=== PATIENT | female | born 1950 | race Caucasian/White ===

== ENCOUNTER 2022-01-01 11:44 | Day surgery (SDC) | payer MEDICARE, SELFPAY ==
[2022-01-01 12:03] VITALS: BP 158/72; PULSE 61; RESP 16; TEMP 36.4; O2SAT 99
[2022-01-01] MEDS: Tropicam./Phenyleph. (1/2.5%) 5 ML BTL OD ×3 (12:24→12:35)
--- NOTE | 2022-01-01 12:40 | W.ANESPRE ---
General Info Date of Service Date Performed: 01/01/22 Height: 5 ft 1.54 in Weight: 80.6 kg Body Mass Index (BMI): 33.0 Surgical Procedure: Operation Date: 01/01/22 15:40 Proposed Procedure Side Surgeon p Cataract Extraction with IOL Implant Right Remberto Quiroz MD Meds Allergies and Home Medications Allergies Allergy/AdvReac Type Severity Reaction Status Date / Time POLO Inhibitors Allergy Severe Other (See Unverified 01/01/22 12:19 Comment) lisinopril Allergy Severe Other (See Unverified 01/01/22 12:19 Comment) dog dander Allergy Unverified 01/01/22 12:19 Cat/Feline Products Allergy Uncoded 12/29/21 11:55 Home Medication Medication Instructions Recorded amlodipine 10 mg tablet 10 tab PO DAILY 12/28/21 atorvastatin 80 mg tablet 80 tab PO HS 12/28/21 carvedilol 25 mg tablet 25 tab PO BID 12/28/21 chlorthalidone 50 mg tablet 50 tab PO DAILY 12/28/21 diltiazem HCl 360 mg 360 cap PO DAILY 12/28/21 capsule,extended release 24 hr potassium chloride 10 mEq 10 tab PO DAILY 12/28/21 tablet,extended release sertraline 50 mg tablet 50 tab PO DAILY 12/28/21 spironolactone 25 mg tablet 25 tab PO BID 12/28/21 Current Visit Medications: Current Medications Generic Name Dose Route Start Last Admin Trade Name Freq PRN Reason Stop Dose Admin Acetaminophen 1,000 mg 01/01/22 06:00 Acetaminophen 500 Mg Tab PO 01/01/22 16:00 Q4H PRN PRN Miscellaneous Medication 0 ml 01/01/22 06:00 Prednisolone 1%, Moxifloxacin 0.5%, Nepafenac 0.1% 5ml Btl OD 01/01/22 16:00 DIRECTED [facility] Miscellaneous Medication 0 ml 01/01/22 06:00 01/01/22 12:35 Tropicam./Phenyleph. (1/2.5%) 5 Ml Btl OD 01/01/22 16:00 1 drp DIRECTED VIRA Administration Tetracaine HCl 0 ml 01/01/22 06:00 Tetracaine 0.5% 4 Ml Btl OD 01/01/22 16:00 DIRECTED [facility] PFSH Active Problems Active Problems: Problem Status Onset Code Nuclear sclerotic cataract of left eye H25.12 Medical History Medical History (Updated 01/01/22 @ 13:01 by Remberto Quiroz MD) Allergic urticaria Edema of lower extremity Hypertension Lipid disorder Menopause present Mixed anxiety and depressive disorder Obesity Pain in left shoulder Pain in limb Pain in right knee Resistant hypertension Pt. is home monitoring with recent medication adjustment. At time of pre-op call BP was 138/70. 155/62 Medical History Comments:: Per pt. stated youngest brother had issues waking up from anesthesia Surgical History Surgical History History of back surgery Hx of appendectomy Hx of colonoscopy Hx of tubal ligation Tobacco Smoking/Tobacco Use Status: Never Alcohol Alcohol Intake: current Alcohol intake frequency: a few times a week Alcohol type: beer and wine Substance Use Substance use: Daily Substance use type: marijuana Details: smoked marijuana 01.01.22 Vital Signs and Lab Results Vital Signs Most Recent Vital Signs in EMR: Most Recent Vital Signs Temp Pulse Resp BP Pulse Ox 36.4 C L 61 16 158/72 H 99 01/01/22 12:03 01/01/22 12:03 01/01/22 12:03 01/01/22 12:03 01/01/22 12:03 Lab Results Blood Type / Crossmatch: No Data to Display Complete Blood Count: No Data to Display Complete Metabolic Panel: No Data to Display Liver Function Panel: No Data to Display Coagulation Panel: No Data to Display Cardiac Panel: No Data to Display Arterial Blood Gas: No Data to Display Venous Blood Gas: No Data to Display Pancreas Panel: No Data to Display Thyroid Panel: No Data to Display Infectious Disease: No Data to Display Blood Cultures: No Data to Display Toxicology Panel: No Data to Display Anesthesia Assessment and Plan Anesthesia History Personal History: No History of Anesthesia Complications Family History: Other Exercise Tolerance Exercise Tolerance: Metabolic Equivalents>4 Pertinent Negatives Pertinent Negatives: No Symptoms of GERD, No Major Pulmonary Symptoms or Complaints and No History of CVA/TIA Cardiac & Pulmonary Exam Cardiac Exam: Normal S1/S2 Heart Sounds Pulmonary Exam: Clear Bilateral Breath Sounds Implantable Cardiac Device Does patient have a Pacemaker or an ICD?: No Airway Exam Known Difficult Airway: No Mallampati Class: 2 Mouth Opening: Normal (> 3cm) Thyromental Distance: Greater than 3 cm Neck Range of Motion: Full ROM Neck Circumference: Normal Teeth Condition: Normal Dentition ASA Classification ASA Score: ASA 2 Emergency Case?: No NPO Status NPO Status: NPO Clears >2 hours, Solids >8 hours Anesthesia Plan Resuscitation Status: Full Code Anesthesia Technique: MAC Anesthesia Airway Planned: Natural Airway Monitors Used: Standard Monitors
[2022-01-01 13:05] VITALS: BMI 33.0
[2022-01-01] MEDS: Tetracaine 0.5% 4 ML BTL OD (13:12)
[2022-01-01] MEDS: Lidocaine 2% Jelly 6 ML SYR (13:15)
[2022-01-01] MEDS: Povidone-Iodine Ophth 30 ML BTL (13:18)
[2022-01-01] MEDS: Duovisc Viscoelastic System EACH 1 EACH (13:20)
[2022-01-01] MEDS: Balanced Salt Soln.-PLUS 500 ML BAG (13:20)
[2022-01-01 13:44] VITALS: BP 176/78; PULSE 60; RESP 16; TEMP 36.4; O2SAT 98
--- NOTE | 2022-01-01 13:45 | W.PM.DSUDISC ---
Discharge Plan Disposition Patient Disposition: HOME Condition: Good Discharge Details Attending Provider: Remberto Quiroz Primary Care Provider: Evelyn Paredes Home Meds and New Rx's Prescriptions: No Action atorvastatin 80 mg tablet 80 tab PO HS Label Comments: TAKE ONE TABLET BY MOUTH EVERY DAY carvedilol 25 mg tablet 25 tab PO BID Label Comments: TAKE ONE TABLET BY MOUTH TWICE A DAY diltiazem HCl 360 mg capsule,extended release 24hr 360 cap PO DAILY Label Comments: TAKE ONE CAPSULE BY MOUTH EVERY DAY potassium chloride 10 mEq tablet extended release 10 tab PO DAILY Label Comments: TAKE ONE TABLET BY MOUTH EVERY DAY chlorthalidone 50 mg tablet 50 tab PO DAILY Label Comments: TAKE ONE TABLET BY MOUTH EVERY DAY spironolactone 25 mg tablet 25 tab PO BID Label Comments: TAKE ONE TABLET BY MOUTH EVERY DAY amlodipine 10 mg tablet 10 tab PO DAILY Label Comments: TAKE ONE TABLET BY MOUTH EVERY DAY sertraline 50 mg tablet 50 tab PO DAILY Label Comments: TAKE ONE TABLET BY MOUTH EVERY DAY Discharge Instructions Stand Alone Forms: Post-op Topical Cataract, Doyle Norman ([facility]) Discharge Orders Discharge Orders: Discharge Order (Routine); Ordered 01/01/22 Ordered By: Remberto Quiroz DS: Diagnosis Discharge Diagnosis (1) Nuclear sclerotic cataract of right eye: Status: Resolved
--- NOTE | 2022-01-01 13:45 | W.PM.OP ---
Date of service: 01/01/22 Time of Service: 12:45 Operative Note Operative Note DATE OF PROCEDURE: 01/01/22 PRE-OP DIAGNOSIS: Nuclear cataract, right eye POST-OP DIAGNOSIS: same PROCEDURE: Cataract extraction using phacoemulsification with intraocular lens implant, right eye SURGEON: Remberto Quiroz ANESTHESIA TYPE: Local By Surgeon and MAC Refer to Anesthesia Record ESTIMATED BLOOD LOSS: 0 PATHOLOGY: none sent COMPLICATIONS: None Patient was transported to: same day Patient's condition: stable Implants: Patel & Patel/JOHANNA Tecnis [id number] Indications: Progressive visual loss due to cataract, right eye Procedure Description: CATARACT SURGERY OPERATIVE REPORT PREOPERATIVE DIAGNOSIS: 1. Nuclear cataract, right eye POSTOPERATIVE DIAGNOSIS: Same OPERATION: 1. Cataract extraction using phacoemulsification with posterior chamber intraocular lens implant, right eye. IOL: IOL Document Management Consultant/Model: Patel & Patel / JOHANNA Tecnis [id number] IOL Power: + 23.0 diopters IOL Serial Number: [id number] Optic Diameter: 6.0mm Haptic/Overall Diameter: 13.0mm PHACO INFO: [employer] Vision System with OZil and Active Fluidics Cumulative Dispersed Energy (CDE): 17.9 seconds SURGEON: Remberto Quiroz MD, BANDAR ANESTHESIA: Monitored Anest[facility] Care (MAC), with local sub-tenon's anesthetic infiltration COMPLICATIONS: None SPECIMENS: None INDICATIONS FOR PROCEDURE: The patient is a 71-year-old lady with history of diminished visual acuity in her right eyes secondary to the development of significant nuclear cataract. The option of cataract surgery was offered to the patient and she felt she was symptomatic enough that she wished to proceed. PROCEDURE: The correct surgical eye was identified and marked as the right eye and the pupil was dilated in the preoperative area using mydriatics and cycloplegics. The dilated pupil size was 7.0 mm. She elected to proceed without oral sedation. The patient was brought to the operating room where cardiopulmonary monitoring was instituted and surgical time-out was performed, confirming the correct operative eye and IOL power. Topical anesthesia was administered and ophthalmic povidone-iodine 5% was instilled into the conjunctival fornices. Lidocaine gel was applied to the cornea and the gelacio-ocular area was prepped with Betadine 10% solution and draped in the usual sterile fashion for intraocular surgery, including an aperture drape. A Tegaderm transparent film dressing was cut in half and used to cover the lashes and lid margins. Care was taken to sequester the lashes and lid margins under the Tegaderm dressing. A lid speculum was placed between the lids of the operative eye and the Mauricio [employer] Revalia operating microscope was maneuvered into position. Odalis scissors were then used to make a conjunctival buttonhole approximately 6mm posterior to the limbus in the inferonasal quadrant. Blunt dissection was carried out to expose bare sclera, and a blunt-tipped sub-tenon?s anesthesia cannula was introduced and passed posteriorly along the globe where non-preserved plain lidocaine was injected into posterior sub-Tenon?s space. A sideport knife was used to make a paracentesis port inferotemporally. Intraocular phenylephrine/lidocaine was injected into the anterior chamber. The anterior chamber was filled with viscoelastic. A 2.4mm keratome knife was used to construct a 2-plane near-clear corneal tunnel extending 2.0mm into clear cornea superiortemporally. A flap was raised on the anterior capsule and capsulorhexis forceps were used to complete a continuous curvilinear capsulorhexis of 5.0 mm. Balanced salt solution was then used to perform cortical cleaving hydrodissection and nuclear hydrodelineation until the lens could be freely rotated within the capsular bag. The lens nucleus was then disassembled and removed within the capsular bag and iris plane using phacoemulsification. Residual cortical material was removed using the I/A handpiece. The posterior capsule was carefully polished to remove as much residual lens epithelial cells as safely possible. The capsular bag was then inflated and the anterior chamber deepened with viscoelastic. The lens implant described above was inserted into the capsular bag using the JOHANNA [place] Injector. A Kuglen hook was used to dial the IOL into position. Residual viscoelastic was then removed first from posterior to the IOL, then from the anterior chamber using the I/A handpiece. The lens implant was noted to center nicely within the capsular bag. The incisions were stromally hydrated, and the anterior chamber was reformed using BSS. Then 0.5cc of moxifloxacin 1.0mg/ml were injected into the capsular bag and anterior chamber. The incisions were checked with a Weck spear and found to be secure. Several drops of ophthalmic povidone-iodine 5% were then applied to the eye followed by two drops of Imprimis combination prednisolone/moxifloxacin/nepafenac solution. The drapes were removed and a clear plastic protective eye shield was placed over the eye. The patient was then returned to Same Day Surgery in stable condition.
--- NOTE | 2022-01-01 13:55 | W.ANESPOSTOP ---
Postoperative Evaluation Date, Time and Location Date Performed: 01/01/22 Time Performed: 13:55 Patient Location: Day Surgery Unit Vital Signs Most Recent Imported Vital Signs: Most Recent Vital Signs Temp Pulse Resp BP Pulse Ox 36.4 C L 60 16 176/78 H 98 01/01/22 13:44 01/01/22 13:44 01/01/22 13:44 01/01/22 13:44 01/01/22 13:44 Pain Score Most Recent Pain Score: Most Recent Pain Score Pain Level 0 01/01/22 13:44 Assessment Mental Status: Awake (Alert & Oriented to Patient Baseline) Airway and Respiratory Function: Patent airway with normal (patient baseline) respiratory exam Cardiovascular Function: Hemodynamically Stable Hydration Status: Adequately Hydrated Nausea & Vomiting: No Nausea or Vomiting Pain: Pt. Denies Any Pain Peripheral Nerve Block: Other (Local by Dr. Quiroz)
== END 2022-01-01 14:05 | disposition home or self-care (01) ==
PROVIDERS: PCP Registered Nurse; Visit Provider Ophthalmology
PROC: (CPT 66984; principal; 2022-01-01 15:30)
DX: H25.11 Age-related nuclear cataract, right eye (principal); I10 Essential (primary) hypertension; E66.9 Obesity, unspecified; E78.5 Hyperlipidemia, unspecified; F41.8 Other specified anxiety disorders
CPT/HCPCS: 66984; V2632

== ENCOUNTER 2022-01-15 06:53 | Day surgery (SDC) | payer MEDICARE, SELFPAY ==
--- NOTE | 2022-01-15 06:16 | W.ANESPRE ---
General Info Date of Service Date Performed: 01/15/22 Height: 5 ft 2 in Weight: 80 kg Body Mass Index (BMI): 32.2 Surgical Procedure: Operation Date: 01/15/22 08:40 Proposed Procedure Side Surgeon p Cataract Extraction with IOL Implant Left Remberto Quiroz MD Meds Allergies and Home Medications Allergies Allergy/AdvReac Type Severity Reaction Status Date / Time POLO Inhibitors Allergy Severe Other (See Unverified 01/11/22 11:36 Comment) lisinopril Allergy Severe Other (See Unverified 01/11/22 11:36 Comment) dog dander Allergy Unverified 01/11/22 11:36 Cat/Feline Products Allergy Uncoded 01/11/22 11:36 Home Medication Medication Instructions Recorded amlodipine 10 mg tablet 10 tab PO DAILY 12/28/21 atorvastatin 80 mg tablet 80 tab PO HS 12/28/21 carvedilol 25 mg tablet 25 tab PO BID 12/28/21 chlorthalidone 50 mg tablet 50 tab PO DAILY 12/28/21 diltiazem HCl 360 mg 360 cap PO HS 12/28/21 capsule,extended release 24 hr potassium chloride 10 mEq 10 tab PO DAILY 12/28/21 tablet,extended release sertraline 50 mg tablet 50 tab PO DAILY 12/28/21 spironolactone 25 mg tablet 25 tab PO BID 12/28/21 aspirin 81 mg tablet 81 mg PO DAILY 01/11/22 Current Visit Medications: Current Medications Generic Name Dose Route Start Last Admin Trade Name Freq PRN Reason Stop Dose Admin Acetaminophen 1,000 mg 01/15/22 06:00 Acetaminophen 500 Mg Tab PO Q4H PRN PRN Miscellaneous Medication 0 ml 01/15/22 06:00 Prednisolone 1%, Moxifloxacin 0.5%, Nepafenac 0.1% 5ml Btl OS DIRECTED VIRA Miscellaneous Medication 0 ml 01/15/22 06:00 Tropicam./Phenyleph. (1/2.5%) 5 Ml Btl OS DIRECTED VIRA Tetracaine HCl 0 ml 01/15/22 06:00 Tetracaine 0.5% 4 Ml Btl OS DIRECTED [facility] PFSH Active Problems Active Problems: Problem Status Onset Code Nuclear sclerotic cataract of left eye H25.12 Nuclear sclerotic cataract of right eye H25.11 Medical History Medical History Allergic urticaria Cataract Edema of lower extremity Hypertension Lipid disorder Menopause present Mixed anxiety and depressive disorder Obesity Pain in left shoulder Pain in limb Pain in right knee Resistant hypertension Pt. is home monitoring with recent medication adjustment. At time of pre-op call BP was 138/70. 155/62 Medical History Comments:: Per pt. stated youngest brother had issues waking up from anesthesia Surgical History Surgical History (Updated 01/11/22 @ 11:35 by Ginna Espinal) History of back surgery Hx of appendectomy Hx of cataract surgery Hx of colonoscopy Hx of tubal ligation Tobacco Smoking/Tobacco Use Status: Never Alcohol Alcohol Intake: current Alcohol intake frequency: a few times a week Alcohol type: beer and wine Substance Use Substance use: Daily Substance use type: marijuana Vital Signs and Lab Results Lab Results Blood Type / Crossmatch: No Data to Display Complete Blood Count: No Data to Display Complete Metabolic Panel: No Data to Display Liver Function Panel: No Data to Display Coagulation Panel: No Data to Display Cardiac Panel: No Data to Display Arterial Blood Gas: No Data to Display Venous Blood Gas: No Data to Display Pancreas Panel: No Data to Display Thyroid Panel: No Data to Display Infectious Disease: No Data to Display Blood Cultures: No Data to Display Toxicology Panel: No Data to Display Imaging and Studies Imaging and Studies Study information below may be from another EMR and interpreted by another provider. Please see original notes in EMR for more complete details. Echocardiogram Summary: 09/2020: LVEF 59%. PAS 26 mmhg, mild AR, mild MR. Anesthesia Assessment and Plan Anesthesia History Personal History: No History of Anesthesia Complications Family History: Other Exercise Tolerance Exercise Tolerance: Metabolic Equivalents>4 Cardiac & Pulmonary Exam Cardiac Exam: Normal S1/S2 Heart Sounds Pulmonary Exam: Clear Bilateral Breath Sounds Implantable Cardiac Device Does patient have a Pacemaker or an ICD?: No Airway Exam Known Difficult Airway: No Mallampati Class: 2 Mouth Opening: Normal (> 3cm) Thyromental Distance: Greater than 3 cm Neck Range of Motion: Full ROM Neck Circumference: Normal Teeth Condition: Normal Dentition ASA Classification ASA Score: ASA 2 Emergency Case?: No NPO Status NPO Status: NPO Clears >2 hours, Solids >8 hours Anesthesia Plan Resuscitation Status: Full Code Anesthesia Technique: MAC Anesthesia Airway Planned: Natural Airway Monitors Used: Standard Monitors Preoperative Comments:: 71 yo female for cataract removal. Sig PMHx: HTN (multiple agents/resistant, 190's/80's last time), anxiety/depression, daily cannabis Previous Car: no MKO, but would like one.
[2022-01-15 07:13] VITALS: BMI 32.2
[2022-01-15 07:15] VITALS: BP 154/82; PULSE 61; RESP 16; TEMP 36.2; O2SAT 100
[2022-01-15] MEDS: Tropicam./Phenyleph. (1/2.5%) 5 ML BTL OS ×3 (07:34→07:45)
[2022-01-15] MEDS: Balanced Salt Soln.-PLUS 500 ML BAG (08:34)
[2022-01-15] MEDS: Duovisc Viscoelastic System EACH 1 EACH (08:35)
[2022-01-15] MEDS: Lidocaine 2% Jelly 6 ML SYR (08:36)
[2022-01-15] MEDS: Povidone-Iodine Ophth 30 ML BTL (08:38)
[2022-01-15] MEDS: Tetracaine 0.5% 4 ML BTL OS (08:40)
[2022-01-15 08:56] VITALS: BP 145/69; PULSE 55; RESP 16; TEMP 36.4; O2SAT 97
--- NOTE | 2022-01-15 08:57 | W.PM.DSUDISC ---
Discharge Plan Disposition Patient Disposition: HOME Condition: Good Discharge Details Attending Provider: Remberto Quiroz Primary Care Provider: Evelyn Paredes Home Meds and New Rx's Prescriptions: No Action atorvastatin 80 mg tablet 80 tab PO HS Label Comments: TAKE ONE TABLET BY MOUTH EVERY DAY carvedilol 25 mg tablet 25 tab PO BID Label Comments: TAKE ONE TABLET BY MOUTH TWICE A DAY diltiazem HCl 360 mg capsule,extended release 24hr 360 cap PO HS Label Comments: TAKE ONE CAPSULE BY MOUTH EVERY DAY potassium chloride 10 mEq tablet extended release 10 tab PO DAILY Label Comments: TAKE ONE TABLET BY MOUTH EVERY DAY chlorthalidone 50 mg tablet 50 tab PO DAILY Label Comments: TAKE ONE TABLET BY MOUTH EVERY DAY spironolactone 25 mg tablet 25 tab PO BID Label Comments: TAKE ONE TABLET BY MOUTH EVERY DAY amlodipine 10 mg tablet 10 tab PO DAILY Label Comments: TAKE ONE TABLET BY MOUTH EVERY DAY sertraline 50 mg tablet 50 tab PO DAILY Label Comments: TAKE ONE TABLET BY MOUTH EVERY DAY aspirin 81 mg Tablet 81 mg PO DAILY calcium carbonate-vitamin D3 [Calcium 600 + D(3)] 600 mg-10 mcg (400 unit) Tablet 1 tab PO DAILY Discharge Instructions Stand Alone Forms: Post-op Topical Cataract, Doyle Norman ([facility]) Discharge Orders Discharge Orders: Discharge Order (Routine); Ordered 01/15/22 Ordered By: Remberto Quiroz DS: Diagnosis Discharge Diagnosis (1) Nuclear sclerotic cataract of left eye: Status: Resolved
--- NOTE | 2022-01-15 08:57 | W.PM.OP ---
Date of service: 01/15/22 Time of Service: 08:58 Operative Note Operative Note DATE OF PROCEDURE: 01/15/22 PRE-OP DIAGNOSIS: Dense nuclear cataract, left eye POST-OP DIAGNOSIS: same PROCEDURE: Cataract extraction using phacoemulsification with intraocular lens implant, left eye SURGEON: Remberto Quiroz ANESTHESIA TYPE: Local By Surgeon and MAC Refer to Anesthesia Record PATHOLOGY: none sent COMPLICATIONS: None Patient was transported to: same day Patient's condition: stable Implants: Patel and Patel / [employer] Tecnis [id number] Indications: Progressive decreased vision due to cataract, left eye Procedure Description: CATARACT SURGERY OPERATIVE REPORT PREOPERATIVE DIAGNOSIS: 1. Dense nuclear cataract, left eye POSTOPERATIVE DIAGNOSIS: Same OPERATION: 1. Cataract extraction using phacoemulsification with posterior chamber intraocular lens implant, left eye. IOL: IOL Muff Winder/Model: Patel & Patel / JOHANNA Tecnis [id number] IOL Power: + 23.0 diopters IOL Serial Number: [id number] Optic Diameter: 6.0 mm Haptic/Overall Diameter: 13.0 mm PHACO INFO: [employer] Vision System with OZil and Active Fluidics Cumulative Dispersed Energy (CDE): 11.23 seconds SURGEON: Remberto Quiroz MD, BANDAR ANESTHESIA: Monitored [facility] (MAC), with local sub-tenon's anesthetic infiltration COMPLICATIONS: None SPECIMENS: None INDICATIONS FOR PROCEDURE: The patient is a 71-year-old lady with history of diminished visual acuity in both eyes secondary to the development of bilateral nuclear cataract. She has already undergone cataract surgery in her right eye and is doing well postoperatively. She now presents for cataract surgery in her left eye. PROCEDURE: The correct surgical eye was identified and marked as the left eye and the pupil was dilated in the preoperative area using mydriatics and cycloplegics. The dilated pupil size was 7.0 mm. Oral sedation was administered in the form of an Imprimis MKO Melt (midazolam 3mg/ketamine 25mg/ondansetron 2mg). The patient was brought to the operating room where cardiopulmonary monitoring was instituted and surgical time-out was performed, confirming the correct operative eye and IOL power. Topical anesthesia was administered and ophthalmic povidone-iodine 5% was instilled into the conjunctival fornices. Lidocaine gel was applied to the cornea and the gelacio-ocular area was prepped with Betadine 10% solution and draped in the usual sterile fashion for intraocular surgery, including an aperture drape. A Tegaderm transparent film dressing was cut in half and used to cover the lashes and lid margins. Care was taken to sequester the lashes and lid margins under the Tegaderm dressing. A lid speculum was placed between the lids of the operative eye and the Mauricio [employer] [place] operating microscope was maneuvered into position. Odalis scissors were then used to make a conjunctival buttonhole approximately 6mm posterior to the limbus in the inferonasal quadrant. Blunt dissection was carried out to expose bare sclera, and a blunt-tipped sub-tenon?s anesthesia cannula was introduced and passed posteriorly along the globe where non-preserved plain lidocaine was injected into posterior sub-Tenon?s space. A sideport knife was used to make a paracentesis port superiorly/superiortemporally. Intraocular phenylephrine/lidocaine was injected int the anterior chamber.. The anterior chamber was filled with viscoelastic. A 2.4mm keratome knife was used to construct a 2-plane near-clear corneal tunnel extending 2.0mm into clear cornea temporally. A flap was raised on the anterior capsule and capsulorhexis forceps were used to complete a continuous curvilinear capsulorhexis of 5.0 mm. Balanced salt solution was then used to perform cortical cleaving hydrodissection and nuclear hydrodelineation until the lens could be freely rotated within the capsular bag. The lens nucleus was then disassembled and removed within the capsular bag and iris plane using phacoemulsification. Residual cortical material was removed using the 45-degree angled silicone I/A tip with 0.3mm port. The posterior capsule was carefully polished to remove as much residual lens epithelial cells as safely possible. The capsular bag was then inflated and the anterior chamber deepened with viscoelastic. The lens implant described above was inserted into the capsular bag using the JOHANNA [place] Injector. A Kuglen hook was used to dial the IOL into position. Residual viscoelastic was then removed first from posterior to the IOL, then from the anterior chamber using the I/A handpiece. The lens implant was noted to center nicely within the capsular bag. The incisions were stromally hydrated, and the anterior chamber was reformed using BSS. The incisions were checked with a Weck spear and found to be secure. Several drops of ophthalmic povidone-iodine 5% were then applied to the eye followed by two drops of Imprimis combination prednisolone/moxifloxacin/nepafenac solution. The drapes were removed and a clear plastic protective eye shield was placed over the eye. The patient was then returned to Same Day Surgery in stable condition.
--- NOTE | 2022-01-15 09:08 | W.ANESPOSTOP ---
Postoperative Evaluation Date, Time and Location Date Performed: 01/15/22 Time Performed: 09:09 Patient Location: Day Surgery Unit Vital Signs Most Recent Imported Vital Signs: Most Recent Vital Signs Temp Pulse Resp BP Pulse Ox 36.4 C L 55 L 16 145/69 H 97 01/15/22 08:56 01/15/22 08:56 01/15/22 08:56 01/15/22 08:56 01/15/22 08:56 Pain Score Most Recent Pain Score: Most Recent Pain Score Pain Level 0 01/15/22 08:56 Assessment Mental Status: Awake (Alert & Oriented to Patient Baseline) Airway and Respiratory Function: Patent airway with normal (patient baseline) respiratory exam Cardiovascular Function: Hemodynamically Stable Hydration Status: Adequately Hydrated Nausea & Vomiting: No Nausea or Vomiting Pain: Pt. Denies Any Pain Peripheral Nerve Block: Patient did not receive a nerve block
[2022-01-15 09:24] VITALS: BP 156/66; PULSE 55; RESP 16; TEMP 36.6; O2SAT 98
== END 2022-01-15 09:24 | disposition home or self-care (01) ==
PROVIDERS: PCP Registered Nurse; Visit Provider Ophthalmology
PROC: (CPT 66984; principal; 2022-01-15 08:30)
DX: H25.12 Age-related nuclear cataract, left eye (principal); I10 Essential (primary) hypertension; E66.9 Obesity, unspecified; F41.8 Other specified anxiety disorders
CPT/HCPCS: 66984; V2632